=== PATIENT | female | born 1970 | race Caucasian/White ===

== ENCOUNTER → 2024-01-21 07:55 | Outpatient (REF) | payer OTHER, SELFPAY | LOC: HWRAD 07:55 | PROVIDERS: ATTENDING PHYSICIAN Nurse Practitioner; FAMILY PHYSICIAN Family Medicine | DX: R91.8 Other nonspecific abnormal finding of lung field (principal); E04.2 Nontoxic multinodular goiter | CPT/HCPCS: 71250; 76536 ==

== ENCOUNTER 2024-03-03 20:20 | Emergency (ER) | payer OTHER, SELFPAY ==
[2024-03-03 20:23] VITALS: BP 171/98
--- NOTE | 2024-03-03 21:11 | ED.GENMED ---
History of Present Illness
General
Chief Complaint: Jaw Pain
Source: patient
Exam Limitations: none
Time Seen by Provider: 03/03/24 21:03
History of Present Illness
History of Present Illness:
This is a 53 year old female that comes in with c/o jaw pain. States that they were out for dinner and she started with a sore throat. States that it wasn't really a sore throat it hurt when she would breath. States that they finished dinner and
then her jaws started to hurt bilaterally. States that the pain went into her face. States that this comes in waves and that there is a stabbing pain around her windpipe. States that she was eating Swazi food and it was a little to hot for her.
States that she had diarrhea yesterday but this is normal for her. Denies any fever, chills, chest pain, SOB, abd pain, nausea, vomiting, headache, dizziness, urinary burning.
Past History
Past History
ED Past Medical History: HTN, NIDDM and Other (migraine,)
ED Past Surgical History: Gynecological (Right sided ectopic , Hysterectomy) and Other (Nasal surgery)
Social History
Tobacco: Non-smoker
Alcohol: Occasional
Personal:
Living: with family
Review of Systems
Review of Systems
All Other Systems: ROS reviewed and negative except as documented in HPI and ROS
Constitutional: Reports no symptoms; Denies fever or chills
EENT: Reports other (Pain around the 'Windpipe' and into her jaw and cheeks. )
Respiratory: Reports no symptoms; Denies cough or trouble breathing
Cardiac: Reports no symptoms; Denies chest pain
ABD/GI: Reports diarrhea (Yesterday); Denies abdominal pain, nausea or vomiting
: Reports no symptoms; Denies dysuria, frequency or urgency
Musculoskeletal: Reports no symptoms
Skin: Reports no symptoms
Neurological: Reports no symptoms; Denies dizzy or headache
Psychiatric: Reports no symptoms
Phy Exam
General Physical Exam
General Presentation: mild distress
General age: appears stated age
General Skin: warm and dry
General Habitus: normal
General Mental: alert
General Hydration: appears well hydrated
ENT Exam
ENT Exam: TM's normal, pharynx normal, neck supple and other (Negative for lymphadenopathy or discomfort with palpation)
Eye Exam
Eye Exam: EOMI
Cardiovascular Exam
Cardiovascular Exam: regular rate/rhythm, no edema, no murmur and normal peripheral pulses
Pulmonary Exam
Pulmonary Exam: lungs clear, no respiratory distress, no rales, chest non tender, no crackles, no rhonchi, no wheezing and no cough
Gastrointestinal Exam
Gastrointestinal Exam: normal bowel sounds, non tender, no organomegaly, no pulsatile mass and non distended
Musculoskeletal Exam
Musculoskeletal Exam: full ROM and no edema
Skin Exam
Skin Exam: normal color, warm/dry, no rash and no petechia
Psychiatric Exam
Psychiatric Exam: normal mood/affect
Course
Orders/Labs/Results
Orders:
Orders
03/03/24 20:38
Electrocardiogram (*1) Urgent
Reason for Study: Other
Other Reason for Exam: jaw pain
EKG- Treatment ONCE
03/03/24 21:08
Complete Blood Count/With Diff Urgent
Comprehensive Metabolic Panel Urgent
Troponin I Urgent
03/03/24 21:10
Dexamethasone Sod Phosphate [Decadron] 20 mg IV NOW STA
Famotidine [Pepcid] 20 mg IV NOW STA
Ketorolac [Toradol] 30 mg IV NOW STA
03/03/24 21:11
Diphenhydramine [Benadryl] 25 mg IV NOW STA
Abnormal Lab Results
03/03/24
21:08
Hct 35.6 L %
(37.0-47.0)
Absolute Lymphs (auto) 3.5 H 10^3/uL
(1.2-3.4)
Absolute Monos (auto) 0.8 H 10^3/uL
(0.1-0.6)
BUN 20 H mg/dl
(7-17)
Glucose 177 H mg/dl
(70-99)
03/03/24 21:08
03/03/24 21:08
Vital Signs
Initial and Last Documented VS:
Initial Vital Signs
Temp Pulse Resp BP Pulse Ox
98.0 F 101 18 171/98 100
03/03/24 20:23 03/03/24 20:23 03/03/24 20:23 03/03/24 20:23 03/03/24 20:23
Last Documented Vital Signs
Temp Pulse Resp BP Pulse Ox
98.0 F 84 16 109/69 96
03/03/24 20:23 03/03/24 22:16 03/03/24 22:16 03/03/24 22:16 03/03/24 22:16
MDM/Problems Addressed
Differential Diagnosis Includes:
Allergic reaction,
MDM/Problems Addressed:
This is a 53 year old female that was eating dinner and started with pain around her 'windpipe'. States that the pain was going up into her jaw and cheeks. States that she was eating Swazi food that was spice.
Will check labs. Give Medication to treat allergic reaction and pain.
Back into see patient. Patient states that she is feeling so much better. States that she can breath, she has no pain. This was most likely an allergic reaction to the food that she was eating. Patient to use Benadryl as needed for the next 24
hours. Follow up with the family doctor. Return with any concerns.
Chronic conditions affecting care:
NA
Acute Exacerbation and/or Progression of Chronic Illness:
NA
*Pulse Oximetry
Patient hypoxic: no
*EKG
Interpreted by ED Provider?: Yes
Heart Rate: 88
Rate: normal
Rhythm: sinus
[place]: normal axis
Interval: normal interval
QRS Pattern: normal QRS
Ischemia: no ischemia
*Critical Care Note
Total Time (30-74mins, 75-104mins- exclusive of procedures): Not Applicable
ED Attending Note
-
Portions of this chart may have been created with voice recognition software.� Occasional wrong word or��sound alike� substitutions may have occurred due to the inherent limitations of voice recognition software.
Discharge Plan
Departure
Patient Disposition: Home (Routine Discharge)
Date of Disposition: 03/03/24
Time of Disposition: 22:31
Patient with high blood pressure during this ER visit?: No
Condition: Good
Covid-19: Not Applicable
Discharge Problem:
Allergic reaction to food
Instructions: Allergic Reaction ED
Prescriptions:
No Action
losartan 50 mg Tablet
50 mg PO DAILY
metoprolol succinate 50 mg Tablet Extended Release 24 Hr
50 mg PO DAILY
metformin 500 mg Tablet Extended Release 24 Hr
500 mg PO BID
Referrals:
NONE,* [Active] -
Activity Restrictions/Additional Instructions:
As discussed, your blood work shows slight Dehydration. Please increase your water intake to 8-8oz glasses daily. Your Troponin and ECG are normal. You may use Benadryl 50mg every 8 hours for the next 24 hours to help with any rebound reaction.
Follow up with the family doctor for recheck. IF YOU HAVE ANY SHORTNESS OF BREATH, CHEST PAIN, INCREASED OR CHANGING PAIN, OR YOU HAVE ANY OTHER CONCERNS PLEASE RETURN TO THE EMERGENCY ROOM.
Interventions
Interventions:
*General Assessment Last Done: 03/03/24 20:33
*Neglect/Abuse Screening Last Done: 03/03/24 20:32
ED- Fall Risk Assessment Last Done: 03/03/24 21:15
*ED COVID-19 Vaccine History Last Done: 03/03/24 20:32
ED-EENT Assessment Last Done: 03/03/24 21:15
ED- Cardiac Assessment Last Done: 03/03/24 21:15
Discharge Date and Time
Print Language: SERBIAN
[2024-03-03] MEDS: BENADRYL 25 MG IV (21:14)
[2024-03-03] MEDS: PEPCID 20 MG IV (21:14)
[2024-03-03] MEDS: TORADOL 30 MG IV (21:14)
[2024-03-03] MEDS: DECADRON 20 MG IV (21:14)
[2024-03-03 21:19] LABS: % Basophils 0.4 % (0-2); % Eosinophils 1.9 % (0-6); % Immature Granulocytes 0.3 % (0-0.5); % Lymphocytes 33.5 % (20.5-51.1); % Neutrophils 55.9 % (42.2-75.2); Absolute Eosinophils 0.2 10^3/uL (0-0.7); Absolute Lymphocytes 3.5 10^3/uL (1.2-3.4); Absolute Monocytes 0.8 10^3/uL (0.1-0.6); Absolute Neutrophils 5.9 10^3/uL (1.4-6.5); Hematocrit 35.6 % (37.0-47.0); Hemoglobin 12.7 g/dL (12.0-16.0); Mean Corp Hgb Conc. 35.7 g/dL (33.0-37.0); Mean Corpuscular Hgb 30.1 pg (27.0-31.0); Mean Corpuscular Volume 84.4 fL (81.0-99.0); Mean Platelet Volume 8.9 fL (7.4-10.4); Nucleated Red Blood Cells % 0 %; Platelet Count 328 10^3/uL (130-400); Red Blood Cell Count 4.22 10^6/uL (4.20-5.40); Red Cell Dist. Width 12.4 % (11.5-14.5); White Blood Cell Count 10.5 10^3/uL (4.8-10.8)
[2024-03-03 21:33] LABS: ALT (SGPT) 19 U/L (0-35); AST (SGOT) 20 U/L (14-36); Albumin 4.6 g/dl (3.5-5.0); Alkaline Phosphatase 106 U/L (38-126); Blood Urea Nitrogen 20 mg/dl (7-17); Calcium 9.6 mg/dl (8.4-10.2); Carbon Dioxide 26 mmol/L (22-30); Chloride 102 mmol/L (98-107); Glucose 177 mg/dl (70-99); Potassium 3.8 mmol/L (3.5-5.1); Sodium 137 mmol/L (135-145); Total Bilirubin 0.4 mg/dl (0.2-1.3); Total Protein 7.4 g/dl (6.3-8.2); eGFR > 60.00
[2024-03-03 21:42] LABS: Troponin I < 0.012 ng/ml
[2024-03-03 22:16] VITALS: BP 109/69
== END 2024-03-03 22:52 | disposition home or self-care (01) ==
LOC: EMR 20:20
PROVIDERS: EMERGENCY PHYSICIAN Emergency Medicine; FAMILY PHYSICIAN Family Medicine
DX: T78.1XXA Other adverse food reactions, not elsewhere classified, initial encounter (principal); R19.7 Diarrhea, unspecified; R68.84 Jaw pain; R09.89 Other specified symptoms and signs involving the circulatory and respiratory systems; M54.2 Cervicalgia; E86.0 Dehydration; I10 Essential (primary) hypertension; E11.9 Type 2 diabetes mellitus without complications; G43.909 Migraine, unspecified, not intractable, without status migrainosus; Z79.84 Long term (current) use of oral hypoglycemic drugs; Z88.2 Allergy status to sulfonamides
CPT/HCPCS: 99284; 96374; 96375 ×3; 80053; 84484; 85025; 93005

== ENCOUNTER → 2025-01-10 19:20 | Outpatient (REF) | payer OTHER, SELFPAY | LOC: WDC 19:20 | PROVIDERS: ATTENDING PHYSICIAN Family Medicine | DX: Z12.31 Encounter for screening mammogram for malignant neoplasm of breast (principal) | CPT/HCPCS: 77063; 77067 ==

== ENCOUNTER 2025-03-07 06:21 | Day surgery (SDC) | payer OTHER, SELFPAY ==
[2025-03-07 08:37] LABS: Glucose - Point of Care 117 mg/dl (70-99)
== END 2025-03-07 12:03 | disposition home or self-care (01) ==
LOC: GI 06:21
PROVIDERS: ATTENDING PHYSICIAN Surgery; FAMILY PHYSICIAN Family Medicine
DX: Z12.11 Encounter for screening for malignant neoplasm of colon (principal); K52.9 Noninfective gastroenteritis and colitis, unspecified; K64.9 Unspecified hemorrhoids; K62.5 Hemorrhage of anus and rectum
CPT/HCPCS: 45380; 82962; 88305